=== PATIENT | male | born 1960 | race Caucasian/White ===

== ENCOUNTER → 2020-08-14 | Outpatient (CLI) | payer BC ==
[~2020-08-14] MED LIST: LODINE CAP 300300 MG PO; NORFLEX 100 MG100 MG PO
== END ==
LOC: CT 10:30
DX: R10.30 Lower abdominal pain, unspecified (principal); R79.89 Other specified abnormal findings of blood chemistry; D72.829 Elevated white blood cell count, unspecified; K57.30 Diverticulosis of large intestine without perforation or abscess without bleeding
CPT/HCPCS: Q9967

== ENCOUNTER 2020-08-29 20:53 | Emergency (ER) | payer BC ==
[2020-08-29] MEDS ORDERED: NORFLEX 100 MG100 MG PO (22:54)
[2020-08-29] MEDS ORDERED: LODINE CAP 300300 MG PO (22:54)
== END 2020-08-29 23:10 | disposition home or self-care (01) ==
LOC: ER1 20:53
DX: S83.91XA Sprain of unspecified site of right knee, initial encounter (principal); S80.02XA Contusion of left knee, initial encounter; W01.0XXA Fall on same level from slipping, tripping and stumbling without subsequent striking against object, initial encounter; Y92.009 Unspecified place in unspecified non-institutional (private) residence as the place of occurrence of the external cause
CPT/HCPCS: 29530; 73552; 73564; 99283

== ENCOUNTER → 2020-08-31 | Outpatient (CLI) | payer BC | LOC: KOH-I 14:05 | DX: S76.111A Strain of right quadriceps muscle, fascia and tendon, initial encounter (principal); S83.8X1A Sprain of other specified parts of right knee, initial encounter; S83.281A Other tear of lateral meniscus, current injury, right knee, initial encounter; S83.241A Other tear of medial meniscus, current injury, right knee, initial encounter; X58.XXXA Exposure to other specified factors, initial encounter | CPT/HCPCS: 73721 ==

== ENCOUNTER → 2021-08-09 | Outpatient (CLI) | payer OTHER ==
[2021-08-09 11:06] LABS: HEMOGLOBIN 17.5 gm/dl (14.0-17.5); RED BLOOD COUNT 4.68 M/UL (4.20-5.50); WHITE BLOOD COUNT 14.1 K/UL (4.5-11.0)
[2021-08-09 11:25] LABS: BUN/CREATININE RATIO 25 (0-10)
== END ==
LOC: LAB 10:44
PROVIDERS: Physician Assistant
DX: R10.9 Unspecified abdominal pain (principal)
CPT/HCPCS: 36415; 74018; 80048; 80076; 82150; 83690; 85025

== ENCOUNTER → 2021-08-09 | Outpatient (CLI) | payer OTHER | LOC: CT 14:00 | DX: R10.9 Unspecified abdominal pain (principal); R19.15 Other abnormal bowel sounds; D72.829 Elevated white blood cell count, unspecified; K57.32 Diverticulitis of large intestine without perforation or abscess without bleeding | CPT/HCPCS: Q9967 ==

== ENCOUNTER → 2022-02-18 | Day surgery (SDC) | payer OTHER ==
[~2022-02-18] MED LIST changes: +ADDERALL 20 MG20 MG PO; +BUPROPION XL150 MG PO; +FLOMAX 0.4 MG0.4 MG PO; +LISINOPRIL20 MG PO; +PROZAC 20 MG CA20 MG PO; +RABEPRAZOLE SOD20 MG PO; +VIAGRA100 MG PO
== END | disposition home or self-care (01) ==
LOC: OR 08:06
DX: Z12.11 Encounter for screening for malignant neoplasm of colon (principal); K63.5 Polyp of colon; K57.30 Diverticulosis of large intestine without perforation or abscess without bleeding; K62.89 Other specified diseases of anus and rectum; K59.09 Other constipation; E66.01 Morbid (severe) obesity due to excess calories; I10 Essential (primary) hypertension; E78.5 Hyperlipidemia, unspecified; F41.9 Anxiety disorder, unspecified; K21.9 Gastro-esophageal reflux disease without esophagitis; Z86.010 Personal history of colon polyps; Z68.38 Body mass index [BMI] 38.0-38.9, adult; Z79.899 Other long term (current) drug therapy; K64.1 Second degree hemorrhoids
CPT/HCPCS: J2704; J7040